=== PATIENT | female | born 1955 | race Caucasian/White ===

== ENCOUNTER 2023-12-17 10:40 | Outpatient (CLI) | payer MEDICARE, BC ==
[2023-12-17] MEDS ORDERED: Iopamidol 370 76% 100 ML VIAL ONE (12:59)
== END 2023-12-17 10:41 | disposition home or self-care (01) ==
LOC: BICCT 10:40
PROVIDERS: ATTEND Family Medicine
DX: R60.0 Localized edema (principal)
CPT/HCPCS: 74177; Q9967

== ENCOUNTER 2025-04-24 14:30 | Outpatient (CLI) | payer MEDICARE, BC ==
[~2025-04-24 14:30] MED LIST: Iopamidol 370 76% 100 ML VIAL ONE
== END 2025-04-24 14:31 | disposition home or self-care (01) ==
LOC: CT 14:30
PROVIDERS: ATTEND Family Medicine
DX: K85.90 Acute pancreatitis without necrosis or infection, unspecified (principal); R74.8 Abnormal levels of other serum enzymes; K82.8 Other specified diseases of gallbladder
CPT/HCPCS: 74160; Q9967

== ENCOUNTER 2025-05-03 08:38 | Outpatient (CLI) | payer MEDICARE, BC | END 2025-05-03 08:39 | disposition home or self-care (01) | LOC: ULT 08:38 | PROVIDERS: ATTEND Family Medicine | DX: K85.90 Acute pancreatitis without necrosis or infection, unspecified (principal); R74.8 Abnormal levels of other serum enzymes; K82.8 Other specified diseases of gallbladder | CPT/HCPCS: 76705 ==

== ENCOUNTER 2025-07-26 08:43 | Outpatient (CLI) | payer MEDICARE, BC ==
[2025-07-26] MEDS ORDERED: Iopamidol 370 76% 100 ML VIAL ONE (14:31)
== END 2025-07-26 08:44 | disposition home or self-care (01) ==
LOC: CT 08:43
PROVIDERS: ATTEND Internal Medicine Gastroenterology
DX: R79.89 Other specified abnormal findings of blood chemistry (principal); R93.2 Abnormal findings on diagnostic imaging of liver and biliary tract
CPT/HCPCS: 74170; Q9967